=== PATIENT | male | born 1965 | race Caucasian/White ===

== ENCOUNTER 2024-07-23 07:33 | Day surgery (SDC) | payer OTHER, SELFPAY ==
[2024-04-24 08:10] VITALS: BMI 36.2
[2024-07-02 11:48] VITALS: BMI 36.5
--- NOTE | 2024-07-23 06:55 | P.PNAN_ITS ---
Anes - Initial Pre Proc Eval Procedure: Operation Date: 07/23/24 09:30 Proposed Procedures p Diagnostic Colonoscopy - Misael Paulson MD Date/Time: 07/23/24 06:55 Surgeon: Misael Paulson MD Pre Op Diagnosis: History of Colon Polyps Patient Data Age: 59 Gender: M Height: 1.73 m Weight: 109 kg Allergies Allergy/AdvReac Type Severity Reaction Status Date / Time No Known Allergies Allergy Unknown Verified 07/23/24 08:42 Home Medications ?Medication ?Instructions ?Recorded ?Confirmed ?Type antiarthritic combination no.2 900 900 mg PO DAILY 11/26/20 07/23/24 History mg tablet (glucosamine-chondroitin) aspirin 81 mg tablet,delayed 81 mg PO DAILY 11/26/20 07/23/24 History release (Adult Low Dose Aspirin) testosterone (AndroGel) 2 pump topical DAILY #450 grams 12/05/23 07/23/24 Rx lovastatin 20 mg tablet 60 mg (3 x 20 mg) PO QPM #270 tabs 04/19/24 07/23/24 Rx omega-3 acid ethyl esters 1 gram 1 cap PO BID #180 caps 04/27/24 07/23/24 Rx capsule sildenafil 25 mg tablet (Viagra) 25 mg PO DAILY PRN sexual activity 07/02/24 07/23/24 History Patient hx anesthesia problems: none Family hx anesthesia problems: none Results Review: All pre-operative results and documents have been reviewed as part of the pre- operative evaluation. [facility] Past Medical History Medical History (Updated 07/23/24 @ 06:56 by Jim Kam DO) Mixed hyperlipidemia Surgical History Surgical History (Updated 07/23/24 @ 06:56 by Jim Kam DO) S/P excision of vocal cord nodule Family History Family History Grandparent Diabetes mellitus Cerebrovascular accident Family history of malignant neoplasm of breast Father Family history of hypercholesterolemia Hypertension Family history of cardiovascular disease Cerebrovascular accident Mother Colon polyp Social History Social History (Updated 04/19/24 @ 09:57 by Britany Ketih CMA) Smoking packs per day: 1 Smoking cigarettes per day: 20.0 Smoking status: Former smoker Tobacco type: cigarettes Smoking end date: 08/09/05 Alcohol intake: current Alcohol use details: 1 drink per month Substance use: current Substance use type: marijuana Other substance usage details: gummy at bedtime Living arrangements: with family Occupation/Education: occupation Gender identity (if verbalized by the patient): Male Spiritual care concerns: No Anes - Eval Final PreProcedure Day of Procedure 07/23/24 06:55 Patient weight: obese Heart: regular rate and rhythm Lungs: clear to auscultation Airway: Mallampati scale class II Neurological: alert and oriented Last oral intake: >/= 8 hours ASA classification: III Emergent: no Anesthetic plan: proceed Anesthesia type and monitoring: general GIVS and standard monitoring Results Review: All pre-operative results and documents have been reviewed as part of the pre- operative evaluation. Informed Consent: The patient's anesthetic plan and its attendant risks and benefits were discussed with the patient/family/POA. Questions were solicited and answers provided to the satisfaction of the patient/family/POA.
[2024-07-23 08:20] VITALS: BP 135/93; PULSE 79; RESP 16; TEMP 37; O2SAT 95
[2024-07-23] MEDS: LACTATED RINGERS 1,000 ML 150 ML IV CONT (08:34)
--- NOTE | 2024-07-23 10:03 | PM.IMHP ---
H&P: HPI History of Present Illness Date/Time: 07/23/24 10:03 Chief Complaint: Screening colonoscopy Narrative: This is the patient's 2nd screening colonoscopy. There are no GI symptoms and there is no family history of colorectal cancer. Review of Systems Review of Systems: All systems reviewed & are unremarkable except as noted in HPI and below PMFSH Past Medical History Medical History (Updated 07/23/24 @ 10:04 by Misael Paulson MD) Mixed hyperlipidemia Surgical History Surgical History (Updated 07/23/24 @ 06:56 by Jim Kam DO) S/P excision of vocal cord nodule Family History Family History Grandparent Diabetes mellitus Cerebrovascular accident Family history of malignant neoplasm of breast Father Family history of hypercholesterolemia Hypertension Family history of cardiovascular disease Cerebrovascular accident Mother Colon polyp Social History Social History (Updated 04/19/24 @ 09:57 by Britany Keith [facility]) Smoking packs per day: 1 Smoking cigarettes per day: 20.0 Smoking status: Former smoker Tobacco type: cigarettes Smoking end date: 08/09/05 Alcohol intake: current Alcohol use details: 1 drink per month Substance use: current Substance use type: marijuana Other substance usage details: gummy at bedtime Living arrangements: with family Occupation/Education: occupation Gender identity (if verbalized by the patient): Male Spiritual care concerns: No Meds Home Medications and Allergies Home Medications ?Medication ?Instructions ?Recorded ?Confirmed ?Type antiarthritic combination no.2 900 900 mg PO DAILY 11/26/20 07/23/24 History mg tablet (glucosamine-chondroitin) aspirin 81 mg tablet,delayed 81 mg PO DAILY 11/26/20 07/23/24 History release (Adult Low Dose Aspirin) testosterone (AndroGel) 2 pump topical DAILY #450 grams 12/05/23 07/23/24 Rx lovastatin 20 mg tablet 60 mg (3 x 20 mg) PO QPM #270 tabs 04/19/24 07/23/24 Rx omega-3 acid ethyl esters 1 gram 1 cap PO BID #180 caps 04/27/24 07/23/24 Rx capsule sildenafil 25 mg tablet (Viagra) 25 mg PO DAILY PRN sexual activity 07/02/24 07/23/24 History Allergies Allergy/AdvReac Type Severity Reaction Status Date / Time No Known Allergies Allergy Unknown Verified 07/23/24 08:42 Vital Signs Vital Signs - 24 hr 07/23/24 08:20 Temperature 98.6 F Pulse Rate 79 Respiratory Rate 16 Blood Pressure 135/93 H Pulse Oximetry 95 Oxygen Delivery Room Air Exam Const: General: cooperative and healthy appearing Resp: Effort & Inspection: normal respiratory effort and able to speak in complete sentences Auscultation: clear to auscultation bilaterally Cardio: Rate: regular rate Rhythm: regular rhythm GI: Inspection: normal to inspection GI Palp: No No hepatosplenomegaly present Auscultation: normal bowel sounds Rectal Exam: deferred Skin: General skin exam: normal color Psych: Appearance: grossly normal Mental Status: mental status grossly normal Assessment and Plan Assessment and plan (1) Encounter for screening colonoscopy: Code(s): Z12.11 - Encounter for screening for malignant neoplasm of colon Status: Acute Assessment and Plan: The patient is deemed a good candidate for the procedure. Consent signed. Will proceed.
[2024-07-23] MEDS: SIMETHICONE ORAL SUSPENSION 20 MG/0.3 ML 30 ML BOTTLE 0.6 ML IRRIGATION (10:21)
[2024-07-23 10:31] VITALS: BP 125/78; PULSE 71; RESP 14; O2SAT 94
[2024-07-23 10:41] VITALS: BP 121/87; PULSE 72; RESP 15; O2SAT 94
[2024-07-23 10:51] VITALS: BP 136/90; PULSE 60; RESP 14; O2SAT 99
--- NOTE | 2024-07-23 11:34 | WPDANESPN ---
Anes - Prog Note Post-Op Date/Time: 07/23/24 11:34 Cardiovascular status: normal Respiratory status: normal Airway patency: baseline Mental status: baseline Post-Op hydration status: normal Vital Signs: Last Vital Signs Temp 37.0 C 07/23/24 08:20 Pulse 60 07/23/24 10:51 Resp 14 07/23/24 10:51 BP 136/90 07/23/24 10:51 Pulse Ox 99 07/23/24 10:51 O2 Del Method Room Air 07/23/24 10:51 Pain Score (VAS): 0 I/O: Intake & Output 07/22/24 07/23/24 07/23/24 23:59 07:59 15:59 Intake Total 900 Balance 900 Post-procedural complaints: none Patient Feedback: Patient satisfied with anesthetic care. Other Findings: Patient vital signs back to baseline. Patient denies nausea and vomiting. Patient's pain under control. Patient OK for discharge.
== END 2024-07-23 11:08 | disposition home or self-care (01) ==
PROVIDERS: PCP Family Medicine; Referring Provider Family Medicine; Visit Provider Internal Medicine Gastroenterology
PROC: 0DJD8ZZ Inspection of Lower Intestinal Tract, Via Natural or Artificial Opening Endoscopic (ICD-10-PCS; CPT 45378; principal; 2024-07-23 09:30)
DX: Z12.11 Encounter for screening for malignant neoplasm of colon (principal)
CPT/HCPCS: 45378